=== PATIENT | male | born 1950 | race Caucasian/White ===

== ENCOUNTER 2017-07-30 12:50 | Emergency (ER) | payer BC, MEDICARE ==
[~2017-07-30] VITALS: Ht 167.6 cm; Wt 106.6 kg
[~2017-07-30 12:50] MED LIST: ACETAMINOPHEN-1 EAC1 PO; ALLOPURINOL 10100 M1 PO; ASPIRIN325 PO; CARVEDILOL12.5 MG PO; CELEXA 10 MG TA10 M1 PO; CELEXA10 MG PO; COLCHICINE0.6 MG PO; CRESTOR10 MG PO; ENOXAPARIN40 MG/0.1 SUBQ; HYDROCODONE-AP1 EAC6 PO; IBUPROFEN 800800 M1 PO; LISINOPRIL20 MG PO; LISINOPRIL30 MG PO; MAXIDE 75/50; MAXZIDE-25 MG1 EACH PO; METAMUCIL PACK1 EACH PO; MILK OF MA400 MG/5 M PO; NORCO 5-325 TA1 EACH PO; NORVASC 5 MG TAB5 MG PO; NORVASC5 MG PO; OMEPRAZOLE20 M2 PO; OXYCODONE HCL 55 MG PO; PERCOCET PO; POTASSIUM20 PO; PRILOSEC20 MG PO; PRINIVIL40 MG PO; RESTORIL30 MG PO; ROXICODONE5 MG PO; TRAMADOL 50 MG50 MG PO; TRIAMTERENE-HC1 EAC3 PO; TYLENOL W/CODEI1 TA2 PO; VITAMIN D1000 UNI1 PO; XARELTO10 MG PO; ZANAFLEX4 MG PO
[2017-07-30] MEDS ORDERED: PROSCAR 5MG TABL5 MG PO (13:45)
[2017-07-30] MEDS ORDERED: FLOMAX0.4 MG PO (13:48)
[2017-07-30] MEDS ORDERED: CRESTOR10 MG PO (13:48)
[2017-07-30 14:55] LABS: HEMATOCRIT 39.1 % (42.0-52.0); HEMOGLOBIN 12.9 gm/dL (14.0-18.0); MCH 31.5 pg (26.0-34.0); MCHC 32.9 g/dL (28.0-37.0); MCV 95.8 fL (80.0-100.0); MPV 7.5 fl. (7.2-11.1); NUCLEATED RBCS 0 /100WBC; PLATELET COUNT* 205 thou/uL (150-400); RBC 4.08 mil/uL (4.50-6.00); RDW-CV 17.8 % (10.5-14.5); WBC 5.4 thou/uL (4.0-11.0)
[2017-07-30 15:00] LABS: CALCIUM 8.8 mg/dL (8.5-10.1); CREATININE 1.1 mg/dL (0.6-1.3); POTASSIUM 3.8 mmol/L (3.5-5.1)
[2017-07-30 15:05] LABS: ALBUMIN 3.1 g/dL (3.4-5.0); TOTAL BILIRUBIN 0.4 mg/dL (<0.1-1.0); TOTAL PROTEIN 7.3 g/dL (6.4-8.2)
[2017-07-30 15:14] LABS: ABSOLUTE LYMPHOCYTES 0.4 thou/uL (0.8-5.3); ABSOLUTE MONOCYTES 0.2 thou/uL (0.0-1.2); ABSOLUTE NEUTROPHILS 4.8 thou/uL (1.6-8.1); ANISOCYTOSIS 1+; PLATELET ESTIMATE ADEQUATE
[2017-07-30] MEDS ORDERED: PREDNISONE 20 M20 M1 PO (15:37)
[2017-07-30] MEDS ORDERED: PROAIR HFA8.5 GM INH (15:37)
[2017-07-30] MEDS ORDERED: TESSALON PERLE100 MG PO (15:37)
[2017-07-30 15:59] VITALS: BP 147/98
== END 2017-07-30 16:01 | disposition home or self-care (01) ==
LOC: M.ERS 12:50
PROVIDERS: Nurse Practitioner Family
DX: J20.9 Acute bronchitis, unspecified (principal); E78.5 Hyperlipidemia, unspecified; I10 Essential (primary) hypertension; Z88.5 Allergy status to narcotic agent; Z88.8 Allergy status to other drugs, medicaments and biological substances

== ENCOUNTER 2017-08-19 12:21 | Emergency (ER) | payer BC, MEDICARE ==
[~2017-08-19] VITALS: Ht 167.6 cm; Wt 108.9 kg
[~2017-08-19 12:21] MED LIST changes: +FLOMAX0.4 MG PO; +PREDNISONE 20 M20 M1 PO; +PROAIR HFA8.5 GM INH; +PROSCAR 5MG TABL5 MG PO; +TESSALON PERLE100 MG PO
[2017-08-19 14:17] VITALS: BP 147/78
== END 2017-08-19 14:18 | disposition home or self-care (01) ==
LOC: M.ERS 12:21
DX: T78.3XXA Angioneurotic edema, initial encounter (principal); I10 Essential (primary) hypertension; E78.5 Hyperlipidemia, unspecified; Z88.5 Allergy status to narcotic agent; Z88.8 Allergy status to other drugs, medicaments and biological substances; Y92.89 Other specified places as the place of occurrence of the external cause

== ENCOUNTER → 2017-09-14 | Outpatient (CLI) | payer BC, MEDICARE ==
[2017-09-14 15:10] LABS: CALCIUM 8.8 mg/dL (8.5-10.1); CREATININE 1.2 mg/dL (0.6-1.3); POTASSIUM 3.8 mmol/L (3.5-5.1)
== END ==
LOC: M.LAB 14:42
PROVIDERS: Nurse Practitioner
DX: I10 Essential (primary) hypertension (principal)

== ENCOUNTER → 2018-03-15 | Outpatient (CLI) | payer BC, MEDICARE | LOC: M.RAD 09:55 | DX: I25.10 Atherosclerotic heart disease of native coronary artery without angina pectoris (principal); K44.9 Diaphragmatic hernia without obstruction or gangrene; J98.4 Other disorders of lung; M47.816 Spondylosis without myelopathy or radiculopathy, lumbar region; G47.33 Obstructive sleep apnea (adult) (pediatric); I10 Essential (primary) hypertension; E78.5 Hyperlipidemia, unspecified ==

== ENCOUNTER → 2018-03-21 | Outpatient (CLI) | payer BC, MEDICARE ==
--- NOTE | 2018-03-21 13:19 | 2DMMODE ---
[place] [address] 2 D/M-MODE ECHOCARDIOGRAM Name: IGNACIO MARMOLEJO Room: [facility]#: [id number] Admission: 03/21/18 Attend Phys: Mart Landon, Discharge: Date of : 48 Date of Service: 03/21/18 1319 Report #: [id number] THIS REPORT FOR: //name// APPROVED REPORT Study performed: 03/21/2018 08:16:04 EXAM: Comprehensive 2D, Doppler, and color-flow Echocardiogram Patient Location: Out-Patient Status: routine BSA: 2.20 HR: 69 bpm BP: 137/89 mmHg Other Information Study Quality: Good Indications Dyspnea Hypertension/HDD 2D Dimensions IVSd: 14.30 (7-11mm) LVOT Diam: 21.61 (18-24mm) LVDd: 58.56 mm PWd: 12.55 (7-11mm) Ascending Ao: 34.65 (22-36mm) LVDs: 33.97 (25-40mm) Aortic Root: 31.62 mm Volumes Left Atrial Volume (Systole) LA ESV Index: 20.00 mL/m2 Aortic Valve AoV Peak Raghavendra.: 1.87 m/s AO Peak Gr.: 13.99 mmHg LVOT Max P.50 mmHg AO Mean Gr.: 8.76 mmHg LVOT Mean P.73 mmHg LVOT Max V: 0.94 m/s AO V2 VTI: 42.81 cm LVOT Mean V: 0.60 m/s NOAH (VTI): 1.88 cm2 LVOT V1 VTI: 21.96 cm Mitral Valve E/A Ratio: 0.98 MV Decel. Time: 178.19 ms MV E Max Raghavendra.: 0.77 m/[place] [address] 2 D/M-MODE ECHOCARDIOGRAM Name: IGNACIO MARMOLEJO Room: [facility]#: [id number] Admission: 03/21/18 Attend Phys: Mart Landon, Discharge: Date of : 48 Date of Service: 03/21/18 1319 Report #: [id number] MV PHT: 51.67 ms MVA (PHT): 4.26 cm2 TDI E/Lateral E': 9.63 E/Medial E': 8.56 Medial E' Raghavendra.: 0.09 m/s Lateral E' Raghavendra.: 0.08 m/s Pulmonary Valve PV Peak Raghavendra.: 1.03 m/s PV Peak Gr.: 4.22 mmHg Left Ventricle The left ventricle is normal size. There is normal LV segmental wall motion. Mild concentric left ventricular hypertrophy. Left ventricular systolic function is normal. The left ventricular ejection fraction is within the normal range. LVEF is 55-60%. The left ventricular diastolic function is normal. Right Ventricle The right ventricle is normal size. The right ventricular systolic function is normal. Atria The left atrium size is normal. The right atrium size is normal. Aortic Valve Aortic valve is mildly calcified. No aortic regurgitation is present. There is no aortic valvular stenosis. Mitral Valve The mitral valve is normal in structure. Mild mitral regurgitation. No evidence of mitral valve stenosis. Tricuspid Valve The tricuspid valve is normal in structure. There is no tricuspid valve regurgitation noted. Pulmonic Valve The pulmonary valve is normal in structure. Trace pulmonic regurgitation. Great Vessels The aortic root is normal in size. IVC is normal in size and collapses with >50% [place] [address] 2 D/M-MODE ECHOCARDIOGRAM Name: IGNACIO MARMOLEJO [id number] Admission: 03/21/18 Attend Phys: Mart Landon, Discharge: Date of : 48 Date of Service: 03/21/18 1319 Report #: [id number] Pericardium There is no pericardial effusion. <Conclusion> LVEF is 55-60%. Mild concentric left ventricular hypertrophy. Aortic valve is mildly calcified. <ELECTRONICALLY SIGNED> By: Mart Lopez MD, [facility] 03/21/189 18 18 Mart Lopez MD, [facility] /INF
--- NOTE | 2018-03-25 11:13 | PF ---
[address] [address] PULMONARY FUNCTION REPORT Name: FRANCIEIGNACIO Lynne Room: [facility]#: [id number] Admission: 03/21/18 Attend Phys: Mart Landon MD Discharge: Date of : 48 Report #: [id number] THIS REPORT FOR: //name// CC: Mart Landon REFERRING PHYSICIAN: Mart Landon MD. INTERPRETATION: Expiratory flow rates revealed a FEV1 of 1.72, which is 60% of the predicted value. Forced vital capacity was 2.98, 77% of predicted value. The FEV1/FVC ratio was 58. The mid flows were severely reduced. After inhaled bronchodilator, there was no real significant change or improvement in the expiratory flow rates. Lung volumes measured by plethysmography revealed an elevated residual volume and elevated total lung capacity. Diffusion capacity was moderately reduced. IMPRESSION: 1. Spirometry consistent with a moderate obstructive airways disease. No change in the expiratory flow rates after inhaled bronchodilator. 2. Lung volumes consistent with hyperinflation and airtrapping. 3. Moderate reduction of diffusion capacity. <ELECTRONICALLY SIGNED> By: Noman Garza MD 03/25/18 1113 [id number] Garza MD /nt
== END ==
LOC: M.CRD 07:56
DX: I11.9 Hypertensive heart disease without heart failure (principal); I25.10 Atherosclerotic heart disease of native coronary artery without angina pectoris; G47.33 Obstructive sleep apnea (adult) (pediatric)

== ENCOUNTER → 2019-05-11 | Outpatient (CLI) | payer BC, MEDICARE ==
[2019-05-11 12:53] LABS: CALCIUM 8.9 mg/dL (8.5-10.1); CREATININE 1.1 mg/dL (0.6-1.3); POTASSIUM 3.8 mmol/L (3.5-5.1)
== END ==
LOC: M.LAB 12:10
PROVIDERS: Registered Nurse
DX: I12.9 Hypertensive chronic kidney disease with stage 1 through stage 4 chronic kidney disease, or unspecified chronic kidney disease (principal); N18.9 Chronic kidney disease, unspecified; E78.5 Hyperlipidemia, unspecified